=== PATIENT | male | born 1945 | race Caucasian/White ===

== ENCOUNTER 2019-02-16 13:58 | Emergency (ER) | payer MEDICARE, BC ==
--- NOTE | 2019-02-16 15:04 | EDM.PDOC ---
ED HPI GENERAL MEDICAL PROBLEM - General Chief Complaint: General Stated Complaint: COUGHING UP BLOOD Time Seen by Provider: 02/16/19 14:30 Source of Information: Reports: Patient, Provider History Limitations: Reports: No Limitations - History of Present Illness INITIAL COMMENTS - FREE TEXT/NARRATIVE: 73-year-old male presents with 3 weeks of hemoptysis and persistent cough. He's been on 2 rounds of antibiotics, had a CT of his chest 6 weeks ago which showed possible lower infiltrate. It's complicated by chronic CLL, also a history of lung cancer and a left upper lobe lobectomy in 2011. No fevers or chills, he is short of breath with activity and is starting to get dizzy when standing. He just returned from [place] and wanted to reestablish care so went into the clinic, but was sent to the emergency room. He was hospitalized in August with an acute NV, also found to have a UTI at that time but his hemoptysis did not start until 3 weeks ago. Onset: Gradual Duration: Week(s): (3 weeks) Worsens with: Reports: Other (Shortness of breath is worse with activity) Associated Symptoms: Reports: Other (Dizziness with standing). Denies: Fever/ Chills, Loss of Appetite, Malaise - Related Data Allergies Allergy/AdvReac Type Severity Reaction Status Date / Time meperidine HCl [From Demerol] Allergy Itching Verified 02/16/19 14:16 Home Meds: Home Meds Gabapentin [Neurontin] 600 mg PO TID 02/16/19 [History] Ibrutinib [Imbruvica] 420 mg PO DAILY 02/16/19 [History] Insulin Glarg,Human.Rec.Analog [Lantus Solostar] 42 units SQ DAILY 02/16/19 [ History] Insulin Lispro [HumaLOG] 1 unit SQ ACBED 02/16/19 [History] Metoprolol Succinate 50 mg PO BID 02/16/19 [History] Multivit-Min/FA/Lycopen/Lutein [Centrum Silver Men Tablet] 1 each PO DAILY 02/16 [History] Pantoprazole Sodium 40 mg PO DAILY 02/16/19 [History] Pedi Multivit 45/Fluoride/Iron [Cskzfqxw-Sbykw-Pznj 0.25 mg/ml] 02/16/19 [ History] Rivaroxaban [Xarelto] 20 mg PO DAILY 02/16/19 [History] Ticagrelor [Brilinta] 90 mg PO BID 02/16/19 [History] amLODIPine [Norvasc] 5 mg PO DAILY 02/16/19 [History] atorvaSTATin Calcium [Atorvastatin Calcium] 40 mg PO DAILY 02/16/19 [History] metFORMIN HCl [Metformin HCl] 1,000 mg PO BID 02/16/19 [History] Past Medical History HEENT History: Reports: Hard of Hearing Other HEENT History: Left ear blocked Cardiovascular History: Reports: High Cholesterol, Hypertension, NV Genitourinary History: Reports: Other (See Below) Other Genitourinary History: UTI in the past --September 2018 Musculoskeletal History: Reports: Osteoarthritis Neurological History: Reports: Neuropathy, Peripheral Endocrine/Metabolic History: Reports: Diabetes, Type II Hematologic History: Reports: Other (See Below) Other Hematologic History: leukemia Oncologic (Cancer) History: Reports: Lung Other Oncologic History: Lung cancer 2011 Dermatologic History: Reports: Other (See Below) Other Dermatologic History: skin dx - Past Surgical History HEENT Surgical History: Reports: Cataract Surgery Cardiovascular Surgical History: Reports: Coronary Artery Stent Other Cardiovascular Surgeries/Procedures: 2 stents in GI Surgical History: Reports: Colonoscopy Musculoskeletal Surgical History: Reports: Joint Replacement Other Musculoskeletal Surgeries/Procedures:: Hip replaced on right 2016 Oncologic Surgical History: Reports: Lobectomy Social & Family History - Tobacco Use Smoking Status *Q: Former Smoker Years of Tobacco use: 4 Used Tobacco, but Quit: Yes Month/Year Tobacco Last Used: 1963 Second Hand Smoke Exposure: No - Caffeine Use Caffeine Use: Reports: Coffee Other Caffeine Use: 4 cups coffee per day - Recreational Drug Use Recreational Drug Use: No ED ROS GENERAL - Review of Systems Review Of Systems: See Below Constitutional: Reports: Malaise. Denies: Fever, Chills HEENT: Reports: Other (Has problems with cerumen, hard of hearing). Denies: Throat Pain Respiratory: Reports: Shortness of Breath (Especially with activity), Cough, Sputum, Hemoptysis Cardiovascular: Reports: Other (Patient is in atrial fibrillation, on anticoagulants denies chest pain) GI/Abdominal: Reports: No Symptoms. Denies: Constipation : Reports: Other (No symptoms since UTI was treated in August) Skin: Reports: Bruising (Bruises very easily) Neurological: Reports: Dizziness. Denies: Headache Psychiatric: Reports: No Symptoms ED EXAM, GENERAL - Physical Exam Exam: See Below Exam Limited By: No Limitations General Appearance: Alert, No Apparent Distress Eye Exam: Bilateral Eye: EOMI, Normal Inspection Head: Atraumatic Respiratory/Chest: No Respiratory Distress, Lungs Clear Cardiovascular: Irregularly Irregular GI/Abdominal: Soft, Non-Tender Extremities: No: Pedal Edema, Leg Pain Neurological: Alert, Oriented, No Motor/Sensory Deficits Psychiatric: Normal Affect, Normal Mood Skin Exam: Other (Numerous bruises on both arms) Course - Vital Signs Last Recorded V/S: Last Vital Signs Temp 94.7 F L 02/16/19 14:17 Pulse 110 H 02/16/19 14:17 Resp 18 02/16/19 14:17 BP 167/83 H 02/16/19 15:11 Pulse Ox 96 02/16/19 14:17 - Orders/Labs/Meds Labs: Laboratory Tests 02/16/19 02/16/19 02/16/19 Range/Units 15:01 15:01 15:01 WBC 26.4 H (4.5-11.0) K/uL RBC 4.42 (4.30-5.90) M/uL Hgb 12.4 (12.0-15.0) g/dL Hct 38.6 L (40.0-54.0) % MCV 87 (80-98) fL MCH 28 (27-31) pg MCHC 32 (32-36) % Plt Count 198 (150-400) K/uL Neut % (Auto) 46 (36-66) % Lymph % (Auto) 51 H (24-44) % [place] % (Auto) 3 (2-6) % Eos % (Auto) 0 L (2-4) % Baso % (Auto) 0 (0-1) % PT 12.0 (9.5-12.0) sec INR 1.10 (0.80-1.20) Sodium 138 L (140-148) mmol/L Potassium 5.1 (3.6-5.2) mmol/L Chloride 102 (100-108) mmol/L Carbon Dioxide 25 (21-32) mmol/L Anion Gap 16.1 H (5.0-14.0) mmol/L BUN 24 H (7-18) mg/dL Creatinine 1.4 H (0.8-1.3) mg/dL Est Cr Clr Drug Dosing 53.82 mL/min Estimated GFR (MDRD) 50 L (>60) Glucose 206 H (74-106) mg/dL Calcium 10.4 H (8.5-10.1) mg/dL Total Bilirubin 0.6 (0.2-1.0) mg/dL AST 24 (15-37) U/L ALT 16 (12-78) U/L Alkaline Phosphatase 62 (46-116) U/L Total Protein 6.4 (6.4-8.2) g/dL Albumin 3.1 L (3.4-5.0) g/dL Globulin 3.3 (2.3-3.5) g/dL Albumin/Globulin Ratio 0.9 L (1.2-2.2) Meds: Medications Discontinued Medications Generic Name Dose Route Start Last Admin Trade Name Freq PRN Reason Stop Dose Admin Sodium Chloride 1,000 mls @ 500 mls/hr 02/16/19 15:30 02/16/19 15:30 Normal Saline IV 500 mls/hr ASDIRECTED CRISS Administration Sodium Chloride 100 mls @ 3 mls/sec 02/16/19 15:45 02/16/19 15:56 Normal Saline IV 3 mls/sec ASDIRECTED CRISS Administration Iopamidol 150 ml 02/16/19 15:45 02/16/19 15:55 Isovue-300 (61%) IV 125 ml . DIRECTED CRISS Administration Sodium Chloride 10 ml 02/16/19 15:44 02/16/19 15:55 Saline Flush FLUSH 02/16/19 15:45 10 ml ONETIME ONE Administration - Re-Assessments/Exams Free Text/Narrative Re-Assessment/Exam: 02/16/19 15:03 A conversation was had with the primary provider who sent him over from the clinic, some of his records were reviewed. He has not had blood work done in 30 days, no imaging in 6 weeks. A CBC, CMP and INR was obtained and if his renal function is sufficient we will do a CT of his chest with IV contrast. 02/16/19 15:26 Hemoglobin returned normal, an IV was started and normal saline at 500 mL an hour was initiated prior to a CT angiogram of the chest. 02/16/19 16:44 CT confirmed a likely new right lower lobe mass as well as a few patchy infiltrates. White count is 26,000, hemoglobin normal, INR is normal. Discussed with Dr. Moncada, patient will be set up for a bronchoscopy tomorrow and then will discuss with Dr. Moncada further testing such as a PET scan. Continue on his current medications. Departure - Departure Time of Disposition: 17:16 Disposition: Home, Self-Care 01 Clinical Impression: Hemoptysis, Mass of lower lobe of right lung - Discharge Information Instructions: Hemoptysis, [id number] Referrals: PCP,None [Primary Care Provider] - Forms: ED Department Discharge Care Plan Goals: Take antibiotic as prescribed and return tomorrow morning for your procedure as planned. Continue your other regular medications.
[2019-02-16] MEDS ORDERED: Sodium Chloride 0.9% 1,000 ML IV SCH (15:30)
[2019-02-16] MEDS ORDERED: Sodium Chloride 0.9% 10 ML Syringe FLUSH ONE (15:44)
[2019-02-16] MEDS ORDERED: Iopamidol 612 MG/ML 150 ML Bottle IV SCH (15:45)
[2019-02-16] MEDS ORDERED: Sodium Chloride 0.9% 100 ML IV SCH (15:45)
--- NOTE | 2019-02-16 16:31 | CRLCT ---
INDICATION: HEMOPTYSIS FOR [address] CHEST WITH CONTRAST TECHNIQUE: Multidetector CT imaging was performed through the chest following intravenous contrast administration using 125 mL Isovue 300. Coronal and sagittal reconstructions were generated. COMPARISON: None. FINDINGS: Lungs and airways: Prior left upper and/or lingular lobectomy. Panlobular pulmonary emphysema. Patchy infiltrate involving the right upper lobe and right middle lobes, likely representing pneumonia. Additional patchy opacity in the basilar portions of both lower lobes could represent additional pneumonia. Spiculated 3.3 x 2.9 centimeter opacity in the posteromedial right lower lobe on image 96 of series 3, suspicious for a mass. Pleura and pleural spaces: Minimal pleural thickening in the posterior lower left thorax. No definite pleural effusions or pneumothorax. Heart and mediastinum: Normal heart size. No significant pericardial effusion. Borderline enlarged bilateral hilar lymph nodes. Vascular structures: Normal caliber thoracic aorta with mild atherosclerotic calcifications. Coronary artery calcifications are also present. Port-A-Cath over the upper right chest with the catheter tip in the region of the junction of the brachiocephalic veins. Chest wall and axillae: No mass or axillary lymphadenopathy. Osseous structures: Spinal degenerative changes. No acute fractures identified. Upper abdomen: Cholelithiasis. Small probable cyst in the anterior aspect of the liver on image 110 of series 2. 3.5 centimeter hypodense lesion within the spleen with a suggestion of subtle peripheral enhancement, favored to represent an incidental hemangioma. Colonic diverticulosis. IMPRESSION: 1. Right upper lobe and right middle lobe patchy infiltrates, consistent with pneumonia. Additional patchy opacities in the basilar lower lobes bilaterally could represent additional pneumonia. 2. Panlobular pulmonary emphysema. 3. Status post left upper and/or lingular lobectomy. Mild pleural thickening in the posterior lower left chest. 4. Nonspecific borderline enlarged bilateral hilar lymph nodes. 5. Spiculated 3.3 x 2.9 centimeter opacity in the right lower lobe, suspicious for mass. Follow up is recommended. 6. Nonacute additional findings as detailed above. SARAH PARKER MD [facility] Dictated by Efrain Parker MD @ 02/16/2019 4:27:19 PM Dictated by: Efrain Parker MD @ 02/16/2019 16:29:38 (Electronically Signed)
== END 2019-02-16 17:26 | disposition home or self-care (01) ==
LOC: JP.ED 13:58
DX: R04.2 Hemoptysis (principal); R91.8 Other nonspecific abnormal finding of lung field; E78.00 Pure hypercholesterolemia, unspecified; I10 Essential (primary) hypertension; I25.2 Old myocardial infarction; E11.42 Type 2 diabetes mellitus with diabetic polyneuropathy; Z88.8 Allergy status to other drugs, medicaments and biological substances; Z79.4 Long term (current) use of insulin; Z79.899 Other long term (current) drug therapy; Z87.891 Personal history of nicotine dependence
CPT/HCPCS: 36415; 71260; 80053; 85025; 85610; 96360; 96361; 99283; J7030

== ENCOUNTER 2019-02-17 10:03 | Day surgery (SDC) | payer MEDICARE, BC ==
[2019-02-17] MEDS ORDERED: Dextrose 5%-Lactated Ringers 1,000 ML IV SCH (10:30)
[2019-02-17] MEDS ORDERED: fentaNYL 250 MCG/5 ML SDV ONE (12:34)
[2019-02-17] MEDS ORDERED: Propofol 200 MG/20 ML SDV ONE ×2 (12:34→13:49)
[2019-02-17] MEDS ORDERED: Lidocaine 4% Top Soln 50 ML Bottle ONE (12:46)
[2019-02-17] MEDS ORDERED: Lidocaine 2% Viscous Solution 15 ML Cup ONE (12:46)
[2019-02-17] MEDS ORDERED: Lidocaine 4% Top Soln LTA 4 ML Syringe Kit ONE (13:00)
--- NOTE | 2019-02-20 07:52 | OR ---
DATE OF PROCEDURE: 02/17/2019 PREOPERATIVE DIAGNOSES: 1. Hemoptysis. 2. CT identified right lower lobe mass. OPERATIVE PROCEDURE: Flexible bronchoscopy with tracheobronchial washings and bronchoalveolar lavage to basilar segments of right lower lobe (74859). ANESTHESIA: Topical plus IV sedation. INDICATION FOR PROCEDURE: This is a 73-year-old presenting with a roughly 2-week history of hemoptysis. The patient was worked up in the emergency room yesterday, which confirmed a right lower lobe mass. This appeared to be in the posterior basilar segment, and otherwise there was no mediastinal lymphadenopathy. Note, the patient is status post carcinoma excision in the left upper lobe in 2011, with no known recurrence. The patient with the hemoptysis is known to be both on Brilinta and Xarelto due to cardiac stent placement in September of this year, which is likely contributing to the degree of hemoptysis. The plan is to proceed with flexible bronchoscopy with biopsies, brushings, washings, and bronchoalveolar lavage as indicated. We will probably be very careful with any biopsies due to the degree of anticoagulation the patient is presently on. Potential risks including bleeding, infection, aspiration of gastric contents, and such were reviewed, and the patient wishes to proceed. DETAILS OF PROCEDURE: The patient was taken to the operating room and placed in a supine position, sitting slightly upward. The IV sedation was administered, after which Anesthesia placed translaryngeal lidocaine. Bronchoscope was then passed through the right side of the nose to visualize the hypopharynx and larynx that were unremarkable. Cord motion was symmetrical. As one passed into the trachea, no secretions were noted. There was some scattered older-appearing blood present in the area of the right upper lobe, where the patient was noted to have some degree of an infiltrate present in the CT scan as well. Presently, no tumor is visible on the left side and we continued to staple off, left upper lobe bronchus and the lower lobe was unremarkable. On the right side again, there were some scattered mucoid secretions and no significant blood was present in the middle or lower lobe of bronchial tree initially, although upon manipulation some blood did appear. To this point, tracheobronchial washings were obtained. At this point, due to the degree of tendency to bleed, we switched the additional workup to bronchoalveolar lavage to the basilar segments of the lower lobe. 200 mL of saline was injected with the bronchoscope occluding those segments, and then the return obtained, which came back fully blood, so I suspect it may be difficult to be read. At that point, no active bleeding was seen, and the scope was then withdrawn. The procedure was then concluded. Plan will be to obtain a PET scan. If the scan shows a high uptake without evidence of metastatic disease, the next step probably would be toward resection of this. We will need to get some Internal Medicine consultation because that would need to be reduced at least temporarily with regard to the great degree of anticoagulation, probably at least taking him off the Xarelto for 48 hours perioperatively. We will await the PET scan and pathology report and then proceed from that point forward. Los Moncada MD /[id number]
== END 2019-02-17 15:06 | disposition home or self-care (01) ==
LOC: JP.SDS 10:03
PROVIDERS: ATTEND Surgery
DX: J98.4 Other disorders of lung (principal); R04.2 Hemoptysis; I25.2 Old myocardial infarction; E11.9 Type 2 diabetes mellitus without complications; Z95.5 Presence of coronary angioplasty implant and graft; Z85.118 Personal history of other malignant neoplasm of bronchus and lung; Z79.01 Long term (current) use of anticoagulants
CPT/HCPCS: 31624; 87015; 87070; 87102; 87116; 87186; 87205; 87206; 87220; A9270; J2704; J3010; J7042; 87077

== ENCOUNTER 2019-03-06 09:06 | Day surgery (SDC) | payer MEDICARE, BC ==
[2019-03-06] MEDS ORDERED: Lidocaine 1% with EPINEPHrine 1:100,000 50 ML MDV ONE (09:09)
[2019-03-06] MEDS ORDERED: Bupivacaine 0.5% 50 ML MDV ONE (09:09)
[2019-03-06] MEDS ORDERED: Dextrose 5%-Lactated Ringers 1,000 ML IV SCH (09:45)
[2019-03-06] MEDS ORDERED: ceFAZolin 2 GM in Premix Bag 1 BAG IV ONE (10:15)
[2019-03-06] MEDS ORDERED: fentaNYL 100 MCG/2 ML SDV ONE (10:21)
[2019-03-06] MEDS ORDERED: Midazolam 1 MG/ML 2 ML SDV ONE (10:21)
[2019-03-06] MEDS ORDERED: Rocuronium 50 MG/5 ML Vial ONE (10:22)
[2019-03-06] MEDS ORDERED: Neostigmine Methylsulfate 1 MG/ML 5 ML Syringe ONE (10:22)
[2019-03-06] MEDS ORDERED: Dexamethasone 4 MG/ML SDV ONE (10:22)
[2019-03-06] MEDS ORDERED: Glycopyrrolate 0.2 MG/ML 5 ML MDV ONE (10:22)
[2019-03-06] MEDS ORDERED: Propofol 200 MG/20 ML SDV ONE (10:22)
[2019-03-06] MEDS ORDERED: Ondansetron 4 MG/2 ML SDV ONE (10:22)
--- NOTE | 2019-03-16 11:23 | OR ---
DATE OF PROCEDURE: 03/06/2019 SURGEON: Los Moncada MD PREOPERATIVE DIAGNOSIS: PET scan showing multiple areas of lymph node at left base of tongue and lingual tonsil areas that have a high PET scan uptake. POSTOPERATIVE DIAGNOSES: 1. No grossly evident pathology at base of tongue or lingual tonsil area. 2. Subfascial enlarged lymph node, left chest wall. OPERATIVE PROCEDURE: 1. Flexible laryngoscopy (31275). 2. Excision of left subfascial chest wall mass (66515). ANESTHESIA: General. INDICATION FOR PROCEDURE: A 73-year-old presenting with an increasing cough. Initial CAT scan was suggestive of possible new tumor in the right lower lobe. The patient is status post previous left upper lobectomy several years ago for carcinoma with no known recurrence. PET scan was obtained, and on the PET scan, the lung lesion appeared to be more of a tree-in- bud nodular lesion, suggestive of inflammatory or infectious process. The patient, however, had high PET scan uptake in the right lingual tonsil and tongue base, area of the right cervical lymph nodes, left anterior chest wall, left axillary area, and as well as the adrenal nodule. Per initial diagnostic workup, plan is to proceed with a laryngoscopy at this point with biopsy as indicated. The easiest of the areas of probable lymph node enlargement to access would be the left anterior chest wall and it will be excised with ultrasound guidance. The patient carries an ongoing diagnosis of chronic lymphocytic leukemia, so with regard of lymph nodes and other tissue, we will try to get gross tissue rather than fine needle aspirations to differentiate simple mature lymphocytes versus areas of CLL involvement. Potential risks including bleeding and infection were reviewed, and the patient wishes to proceed. DETAILS OF PROCEDURE: The patient was taken to the operating room and placed in a supine position. After general endotracheal anesthesia was induced, initially the area of the tonsils and tongue base were palpated, no specific abnormalities were evident at this point, and at the time of endotracheal intubation, direct visualization at that time did not reveal any obvious pathology. Using the flexible bronchoscope, the areas of the tongue base and lingual tonsils were examined and no gross abnormalities were noted, and at that point this phase of the procedure then concluded. It is possible that the lingual tonsillar area may be involved with CLL as well as richly lymphatic area. The left anterior chest wall was then inspected with ultrasound and the area of concern located and marked at the skin level. That area was then prepped and draped, and a transverse incision over the area of involvement was made. This was carried down through the skin, subcutaneous tissue, and through the muscular fascia. In the plane between the ribs, which appeared to be the third interspace, a 2 cm lymph node was identified. This was excised and removed entirely and sent for histologic evaluation. That incision was then closed with layers of 3-0 Vicryl stitch deep and 4-0 Vicryl subcuticular stitch. Dressing was applied. The patient was taken to the recovery room in satisfactory condition. Los Moncada MD /[id number]
== END 2019-03-06 12:08 | disposition home or self-care (01) ==
LOC: JP.SDS 09:06
PROVIDERS: ATTEND Surgery
DX: C85.82 Other specified types of non-Hodgkin lymphoma, intrathoracic lymph nodes (principal); R93.3 Abnormal findings on diagnostic imaging of other parts of digestive tract; C91.10 Chronic lymphocytic leukemia of B-cell type not having achieved remission; I25.10 Atherosclerotic heart disease of native coronary artery without angina pectoris; I10 Essential (primary) hypertension; I25.2 Old myocardial infarction; E11.9 Type 2 diabetes mellitus without complications; E21.3 Hyperparathyroidism, unspecified; J32.4 Chronic pansinusitis; M16.10 Unilateral primary osteoarthritis, unspecified hip; Z90.2 Acquired absence of lung [part of]; Z95.5 Presence of coronary angioplasty implant and graft; Z85.118 Personal history of other malignant neoplasm of bronchus and lung
CPT/HCPCS: 31575; 36415; 38530; 76998; 80053; 83735; 84100; 85027; 85610; 85730; 88305; 88341; 88342; 88360; J0690; J1100; J2250; J2405; J2704; J2710; J3010; J3490; J7042; 88377

== ENCOUNTER 2019-03-26 09:00 | Day surgery (SDC) | payer MEDICARE, BC ==
[~2019-03-26 09:00] MED LIST: Lidocaine 2% Viscous Solution 15 ML Cup ONE; Lidocaine 4% Top Soln LTA 4 ML Syringe Kit ONE; Midazolam 1 MG/ML 2 ML SDV ONE; Propofol 200 MG/20 ML SDV ONE; fentaNYL 100 MCG/2 ML SDV ONE
[2019-03-26] MEDS ORDERED: Glycopyrrolate 0.2 MG/ML 2 ML SDV IVPUSH ONE (09:54)
[2019-03-26] MEDS ORDERED: Dextrose 5%-Lactated Ringers 1,000 ML IV SCH (10:00)
[2019-03-26] MEDS: Albuterol/Ipratropium 3.0-0.5 MG/3 ML Neb Soln NEB ONE ×2 (10:20→10:56)
[2019-03-26] MEDS ORDERED: Albuterol/Ipratropium 3.0-0.5 MG/3 ML Neb Soln NEB ONE (10:54)
[2019-03-26] MEDS: Lidocaine 4% Top Soln 50 ML Bottle ONE ×2 (10:55→11:00)
--- NOTE | 2019-03-31 13:12 | OR ---
DATE OF PROCEDURE: 03/26/2019 PREOPERATIVE DIAGNOSIS: Persistent infiltrates and chronic cough. POSTOPERATIVE DIAGNOSIS: Persistent infiltrates and chronic cough. PROCEDURE PERFORMED: Flexible bronchoscopy with tracheobronchial washings: 1. Brushings to medial basilar segment of right lower lobe (46425). 2. Bronchoalveolar lavage to posterior segment of right upper lobe and second bronchoalveolar lavage to basilar segments of left lower lobe (05035). ANESTHESIA: Topical plus IV sedation. INDICATION FOR PROCEDURE: The patient presents with picture suspicious for possible pulmonary fungal infection and sent for secondary bronchoscopy. The patient did have some fungal elements grow out on a previous bronchoscopy done roughly 3 weeks ago, but the lab did not grow these out to a specific organism. The patient also has somewhat of a mass effect due to maybe inflammatory in the medial basilar segment of the right lower lobe. Plan is to treat with flexible bronchoscopy with probably 2 locations separately as well as brushings to the medial basilar segment of the right lower lobe to look again for any evidence of the tumor in that location. Potential risks of the procedure including bleeding, infection, aspiration of gastric contents and such were reviewed, and the patient wishes to proceed. DETAILS OF PROCEDURE: The patient was taken to operating room and placed in a supine position sitting up roughly 30 degrees to minimize aspiration. IV sedation was administered, after was anesthetized with topical lidocaine, and anesthesia then placed translaryngeal injection of lidocaine as well. Flexible bronchoscope was then passed to the right side of the nose, visualized nasopharynx and hypopharynx were unremarkable. Cord motion was symmetrical. Within the trachea, there is some scattered blood-tinged mucoid secretions, the amount of blood present was much less than previously seen compared to the recent bronchoscopy. At this point, after general tracheobronchial washings were obtained, 2 sets of brushings were placed into the medial basilar segment of the right lower lobe and those brushings were then sent for cytologic evaluation. At this point, 2 bronchoalveolar lavages, one to the posterior segment of the right upper lobe and one to the basilar segment of the left lower lobe, both with 200 mL of saline. Specimens was collected separately and sent for full cytologic and microbiologic workup. We did request any fungal elements be worked up to completion to obtain a concrete ID and potential sensitivities for any fungal elements that might be encountered. The procedure was then concluded. The patient tolerated the procedure well. He was taken to recovery room in satisfactory condition. The patient is awaiting a Pulmonary consultation in [place] and I will see the patient back the first full week of April for followup and Dr. Duran with also be following up with the patient after the pulmonary consultation. Los Moncada MD /[id number] CC: Gena Rm PA-C Department of Hematology/Oncology [place], [place]
== END 2019-03-26 12:47 | disposition home or self-care (01) ==
LOC: JP.SDS 09:00
PROVIDERS: ATTEND Surgery
DX: R91.8 Other nonspecific abnormal finding of lung field (principal); R05 Cough
CPT/HCPCS: 31623; 31624; 87015; 87070; 87077; 87102; 87116; 87186; 87205; 87206; 87220; 94640; A9270; J2250; J2704; J3010; J3490; J7042; 87106; 88112; 88305; 88312; 88341; 88342; J7620-GY